=== PATIENT | male | born 1960 | race Caucasian/White ===

== ENCOUNTER 2019-10-06 16:49 | Emergency (ER) | payer OTHER ==
[2019-10-06] MEDS ORDERED: Ondansetron 4 MG Tab.DIS PO ONE (16:50)
[2019-10-06] MEDS ORDERED: Acetaminophen/HYDROcodone 325-10 MG Tab PO ONE (16:50)
--- NOTE | 2019-10-06 16:50 | EDM.PDOC ---
ED HPI GENERAL MEDICAL PROBLEM - General Chief Complaint: Genitourinary Problem Stated Complaint: UNK Time Seen by Provider: 10/06/19 17:00 Source of Information: Reports: Patient, RN, RN Notes Reviewed History Limitations: Reports: No Limitations - History of Present Illness INITIAL COMMENTS - FREE TEXT/NARRATIVE: Pt in [place], lives in [place], presents to ER with c/o sudden onset this morning of left flank pain. Pt states the pain radiates to the left groin and to the tip of the penis. Pt states this feels just like past kidney stone pain. He reports Hx of "many" kidney stones, but hasn't had one for 5yrs. Pt rates the current pain 4/10, but states the pain at maximal intensity was 8/10. Pt states he urinated just before coming in the ER and felt a jab, and tingle at the tip of the penis, but didn't see or hear a stone come out. He denies N/V, fever, chills, or urinary retention. Onset: Today, Sudden Duration: Intermittent, Waxing/Waning Location: Reports: Abdomen Quality: Reports: Ache, Sharp Severity: Severe Improves with: Reports: None Worsens with: Reports: None Associated Symptoms: Reports: No Other Symptoms Left Flank Pain Score (Numeric/FACES): 6 - Related Data Allergies Allergy/AdvReac Type Severity Reaction Status Date / Time No Known Allergies Allergy Verified 10/06/19 17:03 Home Meds: Home Meds Metoprolol Tartrate 25 mg PO DAILY 10/06/19 [History] amLODIPine [Norvasc] 5 mg PO DAILY 10/06/19 [History] atorvaSTATin [Lipitor] 20 mg PO BEDTIME 10/06/19 [History] lisinopriL [Lisinopril] 5 mg PO DAILY 10/06/19 [History] Past Medical History HEENT History: Reports: 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 ED EXAM, RENAL/ - Physical Exam Exam: See Below Exam Limited By: No Limitations General Appearance: Alert, No Apparent Distress, Obese Throat/Mouth: Normal Inspection, Normal Voice, No Airway Compromise Head: Atraumatic, Normocephalic Neck: Normal Inspection, Non-Tender, Full Range of Motion Respiratory/Chest: No Respiratory Distress, Lungs Clear, Normal Breath Sounds, No Accessory Muscle Use, Chest Non-Tender Cardiovascular: Normal Peripheral Pulses, Regular Rate, Rhythm, No Edema, No Gallop, No JVD, No Murmur, No Rub GI/Abdominal: Normal Bowel Sounds, Soft, Tender (LLQ). No: Guarding, Rigid, Rebound (Male) Exam: Deferred Rectal (Males) Exam: Deferred Back Exam: Normal Inspection, Full Range of Motion. No: CVA Tenderness (L), CVA Tenderness (R) Extremities: Normal Inspection Neurological: Alert, Oriented, No Motor/Sensory Deficits Psychiatric: Normal Mood Skin Exam: Warm, Dry, Intact, Normal Color, No Rash Course - Vital Signs Last Recorded V/S: Last Vital Signs Temp 97 F 10/06/19 16:59 Pulse 60 10/06/19 16:59 Resp 18 10/06/19 16:59 BP 152/89 H 10/06/19 16:59 Pulse Ox 97 10/06/19 16:59 - Orders/Labs/Meds Labs: Laboratory Tests 10/06/19 10/06/19 Range/Units 16:54 16:54 Urine Color Red (YELLOW) Urine Appearance Turbid (CLEAR) Urine pH 5.5 (5.0-9.0) Ur Specific [place] >= 1.030 (1.005-1.030) Urine Protein 100 H (NEGATIVE) Urine Glucose (UA) Negative (NEGATIVE) Urine Ketones Negative (NEGATIVE) Urine Occult Blood Moderate H (NEGATIVE) Urine Nitrite Negative (NEGATIVE) Urine Bilirubin Small H (NEGATIVE) Urine Urobilinogen 0.2 (0.2-1.0) mg/dL Ur Leukocyte Esterase Negative (NEGATIVE) Urine RBC Packed H /HPF Urine WBC 0-5 (0-5/HPF) /HPF Ur Epithelial Cells Few (NOT SEEN) /HPF Amorphous Sediment Moderate (NOT SEEN) /HPF Urine Bacteria Few (0-FEW/HPF) /HPF Urine Mucus Rare (NOT SEEN) /LPF Urine Opiates Screen Negative (NEGATIVE) Ur Oxycodone Screen Negative (NEGATIVE) Urine Methadone Screen Negative (NEGATIVE) Ur Barbiturates Screen Negative (NEGATIVE) U Tricyclic Antidepress Negative (NEGATIVE) Ur Phencyclidine Scrn Negative (NEGATIVE) Ur Amphetamine Screen Negative (NEGATIVE) U Methamphetamines Scrn Negative (NEGATIVE) Urine MDMA Screen Negative (NEGATIVE) U Benzodiazepines Scrn Negative (NEGATIVE) Urine Cocaine Screen Negative (NEGATIVE) U Marijuana (THC) Screen Negative (NEGATIVE) Meds: Medications Discontinued Medications Generic Name Dose Route Start Last Admin Trade Name Freq PRN Reason Stop Dose Admin Ketorolac Tromethamine 30 mg 10/06/19 16:59 10/06/19 17:06 Toradol IVPUSH 10/06/19 17:00 30 mg ONETIME ONE Administration Ondansetron HCl 4 mg 10/06/19 16:59 10/06/19 17:06 Zofran IV 10/06/19 17:00 4 mg ONETIME ONE Administration - Radiology Interpretation Free Text/Narrative:: [facility] Final Radiology Report Call: [phone] assistance Online chat: [email or web address] Name: VIKTORIA HARTMAN Age: 59Years M Date: 10/06/2019 SSN: -- : [id number] Study: CT ABDOMEN PELVIS WO CONT Requesting Physician: DEANDRE LUCIANO Images: [id number] Addl Studies: Provided Clinical History: Left flank pain, hematuria, suspected kidney stone Contrast: Without Contrast Medium: Contrast Amount: Contrast Method: Page 1 of 2 PROCEDURE INFORMATION: Exam: CT Abdomen And Pelvis Without Contrast Exam date and time: 10/06/2019 5:58 PM Age: 59 years old Clinical indication: Pain; Other: Left flank; Additional info: Left flank pain, hematuria, suspected kidney stone TECHNIQUE: Imaging protocol: Computed tomography of the abdomen and pelvis without contrast. Radiation optimization: All CT scans at this facility use at least one of these dose optimization techniques: automated exposure control; mA and/or kV adjustment per patient size (includes targeted exams where dose is matched to clinical indication); or iterative reconstruction. COMPARISON: No relevant prior studies available. FINDINGS: Liver: There is a diffuse decrease in hepatic parenchymal density, consistent with severe hepatic steatosis. Correlate with LFTs. Gallbladder and bile ducts: Surgical clips in the right upper quadrant suggest cholecystectomy. There is no evidence of biliary ductal dilation. Pancreas: Normal. No ductal dilation. Spleen: Normal. No splenomegaly. Adrenals: Normal. No mass. Kidneys and ureters: 2 mm distal left ureteral calculus at the UVJ or just in the bladder with minimal hydroureter and hydronephrosis. 3 mm left renal collecting system calcification. There is no evidence of right hydronephrosis. Stomach and bowel: Non-specific/nonobstructive intestinal gas pattern. Mild diffuse diverticulosis is present in the colon. There is no evidence of colitis/diverticulitis. Appendix: The appendix is not specifically identified. There is no evidence of fluid or inflammatory stranding at the base of the cecum. VIKTORIA HARTMAN | Final Radiology Report CONFIDENTIALITY STATEMENT This report is intended only for use by the referring physician, and only in accordance with law. If you received this in error, call [phone]. Page 2 of 2 Intraperitoneal space: Unremarkable. No free air. No significant fluid collection. Vasculature: Unremarkable. No abdominal aortic aneurysm. Lymph nodes: Unremarkable. No enlarged lymph nodes. Bladder: Unremarkable as visualized. Reproductive: Unremarkable as visualized. Bones/joints: Unremarkable. No acute fracture. Soft tissues: Unremarkable. Other findings: No right calcifications. IMPRESSION: 1. 2 mm distal left ureteral calculus at the UVJ or just in the bladder with minimal hydroureter and hydronephrosis. 2. There is a diffuse decrease in hepatic parenchymal density, consistent with severe hepatic steatosis. Correlate with LFTs. Thank you for allowing us to participate in the care of your patient. Dictated and Authenticated by: Sylvain Diaz MD 10/06/2019 6:15 PM Central Time ([place] & [place]) Departure - Departure Time of Disposition: 18:20 Disposition: Home, Self-Care 01 Condition: Good Clinical Impression: Left renal stone, Fatty liver disease, nonalcoholic - Discharge Information *PRESCRIPTION DRUG MONITORING PROGRAM REVIEWED*: Not Applicable *COPY OF PRESCRIPTION DRUG MONITORING REPORT IN PATIENT MARGIE: Not Applicable Instructions: Renal Colic, [id number], Kidney Stones, [id number], Nonalcoholic Fatty Liver Disease Diet, Adult Forms: ED Department Discharge Additional Instructions: Rx: Hydrocodone APAP 5mg/325mg Rx: Zofran 4mg Follow up in clinic within one week for recheck. Return to ER if worse at any time. Sepsis Event Note (ED) - Focused Exam Vital Signs: Vital Signs Temp Pulse Resp BP Pulse Ox 10/06/19 16:59 97 F 60 18 152/89 H 97
[2019-10-06] MEDS ORDERED: Ketorolac 30 MG/ML SDV IVPUSH ONE (16:59)
[2019-10-06] MEDS ORDERED: Ondansetron 4 MG/2 ML SDV IV ONE (16:59)
--- NOTE | 2019-10-06 18:16 | CT ---
PROCEDURE INFORMATION: Exam: CT Abdomen And Pelvis Without Contrast Exam date and time: 10/06/2019 5:58 PM Age: 59 years old Clinical indication: Pain; Other: Left flank; Additional info: Left flank pain, hematuria, suspected kidney stone TECHNIQUE: Imaging protocol: Computed tomography of the abdomen and pelvis without contrast. Radiation optimization: All CT scans at this facility use at least one of these dose optimization techniques: automated exposure control; mA and/or kV adjustment per patient size (includes targeted exams where dose is matched to clinical indication); or iterative reconstruction. COMPARISON: No relevant prior studies available. FINDINGS: Liver: There is a diffuse decrease in hepatic parenchymal density, consistent with severe hepatic steatosis. Correlate with LFTs. Gallbladder and bile ducts: Surgical clips in the right upper quadrant suggest cholecystectomy. There is no evidence of biliary ductal dilation. Pancreas: Normal. No ductal dilation. Spleen: Normal. No splenomegaly. Adrenals: Normal. No mass. Kidneys and ureters: 2 mm distal left ureteral calculus at the UVJ or just in the bladder with minimal hydroureter and hydronephrosis. 3 mm left renal collecting system calcification. There is no evidence of right hydronephrosis. Stomach and bowel: Non-specific/nonobstructive intestinal gas pattern. Mild diffuse diverticulosis is present in the colon. There is no evidence of colitis/diverticulitis. Appendix: The appendix is not specifically identified. There is no evidence of fluid or inflammatory stranding at the base of the cecum. Intraperitoneal space: Unremarkable. No free air. No significant fluid collection. Vasculature: Unremarkable. No abdominal aortic aneurysm. Lymph nodes: Unremarkable. No enlarged lymph nodes. Bladder: Unremarkable as visualized. Reproductive: Unremarkable as visualized. Bones/joints: Unremarkable. No acute fracture. Soft tissues: Unremarkable. Other findings: No right calcifications. IMPRESSION: 1. 2 mm distal left ureteral calculus at the UVJ or just in the bladder with minimal hydroureter and hydronephrosis. 2. There is a diffuse decrease in hepatic parenchymal density, consistent with severe hepatic steatosis. Correlate with LFTs.
[2019-10-06] MEDS ORDERED: Acetaminophen/HYDROcodone 325-10 MG Tab ONE (18:33)
[2019-10-06] MEDS ORDERED: Ondansetron 4 MG Tab.DIS ONE (18:33)
== END 2019-10-06 18:39 | disposition home or self-care (01) ==
LOC: DL.ED 16:49
DX: N13.2 Hydronephrosis with renal and ureteral calculous obstruction (principal); K76.0 Fatty (change of) liver, not elsewhere classified; I25.10 Atherosclerotic heart disease of native coronary artery without angina pectoris; E78.00 Pure hypercholesterolemia, unspecified; I10 Essential (primary) hypertension; I25.2 Old myocardial infarction; E66.9 Obesity, unspecified; Z68.41 Body mass index [BMI] 40.0-44.9, adult
CPT/HCPCS: 74176; 80305; 81001; 96374; 96375; 99284; A9270; J1885; J2405